=== PATIENT | female | born 1980 | race Caucasian/White ===

== ENCOUNTER 2016-04-21 22:17 | Emergency (ER) | payer BC, OTHER ==
[~2016-04-21] VITALS: Ht 175.3 cm; Wt 87.0 kg
[2016-04-21 22:28] VITALS: BP 135/84; PULSE 104; RESP 18; TEMP 98.2; O2SAT 95
--- NOTE | 2016-04-21 23:43 | PD ---
HPI Chief Complaint: Alcohol/Drug Intoxication Time Seen by Provider: 23:40 Travel History International Travel<30 days: No Contact w/Intl Traveler<30days: No Traveled to known affect area: No History of Present Illness HPI Patient comes in by EMS after being found passed out and a parking lot. Patient states she does not recall what happened. Patient complaining of pain in her face and right shoulder. Patient describes pain as a throbbing/aching like in nature. Patient is uncertain of her last tetanus shot. Patient reports she drank a lot today. Denies , chest pain, shortness of breath, numbness or tingling, loss of bowel or bladder, nausea, vomiting, headache, or abdominal pain. PFSH Past Medical History Medical History: Denies Significant Hx Tetanus Vaccination: Unknown Influenza Vaccination: No ?: Not LMP: 04/09/16 Tubal Ligation: Yes Past Surgical History Surgical History: No Previous Surgery Social History Alcohol Use: Yes Tobacco Use: No Substance Use: No Allergies-Medications (Allergen,Severity, Reaction): Coded Allergies: No Known Allergies (Unverified , 04/21/16) Reported Meds & Prescriptions Reported Meds & Active Scripts Active No Active Prescriptions or Reported Medications Review of Systems Except as stated in HPI: all other systems reviewed are Neg Physical Exam Narrative GENERAL: Well-developed, overly nourished, in no acute distress, and non-ill appearing. SKIN: Warm and dry. Superficial abrasion right shoulder. Contusion noted right lower mandible anterior aspect that is tender to palpation. HEAD: Atraumatic. Normocephalic. EYES: Pupils equal and round. EOMI. No scleral icterus. No injection or drainage. ENT: No nasal bleeding or discharge. Mucous membranes pink and moist. No fractured or loose teeth noted. NECK: Trachea midline. Supple. No nuclear rigidity. No tenderness or crepitus or midline cervical spine. CARDIOVASCULAR: Radial pulses 2+, tach, equal bilaterally. Capillary refill less than 2 seconds. RESPIRATORY: No accessory muscle use. No respiratory distress. MUSCULOSKELETAL: No obvious deformities. No clubbing. No cyanosis. No edema. Full range of motion. Shoulder:FROM equal BL with passive flexion, extension, Abduction, Adduction, internal/external rotation, and pronation/supination. Sensation equal BL deltoid muscles. Pulses equal BL distal to injury. Capillary refill less than 2 seconds distal to injury and equal BL. FROM distal to injury and equal BL. Strength distal to injury equal BL. NV intact distal to injury equal BL. Flexion and extension of thumb equal BL. Equal strength and movement with abduction/adductions of BL fingers. 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 Patient reports pain with palpation of right shoulder as well as with certain passive and active movements. NEUROLOGICAL: Awake and alert. No obvious cranial nerve deficits. Motor grossly within normal limits. Normal speech. PSYCHIATRIC: Appropriate mood and affect; insight and judgment normal. Data Data Last Documented VS Vital Signs Date Time Temp Pulse Resp B/P Pulse Ox O2 Delivery O2 Flow Rate FiO2 04/21/16 22:28 98.2 104 18 135/84 95 Orders Wound Care (04/21/16 23:37) Tetanus/Diphtheria Tox Adult (Tetanus/Di (04/21/16 23:45) Ct Brain W/O Iv Contrast(Rout) (04/21/16 23:37) Ct Facial Bones W/O Iv Cont (04/21/16 23:37) Ct Cerv Spine W/O Contrast (04/21/16 ) Shoulder, Complete (>2vws) (04/21/16 ) Ice/Cold Pack (04/21/16 23:37) Ibuprofen (Motrin) (04/22/16 01:15) MDM Medical Decision Making Medical Screen Exam Complete: Yes Emergency Medical Condition: Yes Differential Diagnosis Fracture, contusion, abrasion, laceration, strain, other Narrative Course There is no significant jaw pain or tenderness. There is no malocclusion noted subjectively or objectively. There is no bruising under the tongue. There is no significant swelling, tenderness, bruising or deformity of the face to suggest fractures of face or nose. There is no nasal discharge or bleeding and no septal hematoma. There are no visual problems or significant bruising under eyes or midface. There is no evidence to suggest entrapment and there is no facial nerve palsy. There is no flattening of the cheek or altered sensation underneath the eye. The facial bones are stable and nonmobile. The airway is intact. Findings were discussed with the patient. The patient was instructed on pain medication, ice packs and elevation of head. The patient agreed with plan of care and management and will follow up with PCP. There was no evidence of cranial or intracranial injury noted on CT of the head and no evidence of fracture or injury to cervical spine on C-spine CT. The patient has been behaving normally and no notable altered mental status. Lombard score of 15. The neurologic exam is normal. The patient is awake and aware and motor sensory exams are normal. There is no clinical evidence to support intracranial injury or bleed. There is no clinical evidence to suspect bony injury by exam. Radiographic examination revealed no fracture seen at this time. The patient has full range of motion on active and passive motions. There is no significant edema. There is no proximal or distal joint effusion. The distal extremity appears neurovascularly intact, without evidence of neurovascular injury nor compartment syndrome. Tendon exam also was intact. The patient and given warnings for vascular compromise. The patient is to follow up with their regular physician. The patient agrees with plan. The abrasions are very superficial and non-repairable. There was no evidence to suggest foreign bodies. Visual and tactile exams were unremarkable. There was no evidence of neurovascular injury as well. The patients wound were cleaned and dressed. The patient was given signs and symptom warnings for infection, such as increasing pain, redness, swelling, associated heat, pus or fever. The patient was given instructions for timely follow up. The patient agreed with plan of care. Patient in no obvious distress upon re-evaluation. All pertinent Radiology result(s) discussed with patient. Patient was asked if they wanted to speak to my attending, which the patient did not wish to do at this time. Any questions/ concerns in reference to patient diagnosis/condition discussed and clarified prior to patient's discharge. Reinforced sheer importance of close follow up with patient's primary physician or primary care clinic. Instructed patient to return to ED immediately, if symptoms return/worsen. Pt showed understanding of above instructions. Further instructions and recommendations were detailed in discharge paperwork. Pt ambulated without difficulty out of ED at discharge. Diagnosis Primary Impression: Facial contusion Qualified Code: S00.83XA - Facial contusion, initial encounter Additional Impressions: Closed head injury Qualified Code: S09.90XA - Closed head injury, initial encounter Abrasion Right shoulder pain Qualified Code: M25.511 - Acute pain of right shoulder Alcohol intoxication Qualified Code: F10.120 - Alcohol intoxication, uncomplicated Patient Instructions: Abrasion (ED), Alcohol Intoxication (DC), Facial Contusion (ED), General Instructions, Head Injury (ED), Shoulder Pain (ED) Additional Instructions: Follow-up with your primary care physician this week for reevaluation. Sleep and angle approximately 30 or higher to decrease pain and swelling of the face. Apply ice to affected areas 20 minutes per hour as needed for pain. Use [id number] Tylenol and/or ibuprofen as needed for pain. Follow instructions on the packaging. Keep wound dry and clean as possible using soap and water. Use Neosporin to promote healing. Return to the emergency department if symptoms get worse. Scripts No Active Prescriptions or Reported Meds Disposition: 01 DISCHARGE HOME Condition: Stable Jd Hollins Apr 21, 2016 23:43
[2016-04-21] MEDS ORDERED: TETANUS/DIPHTHERIA TOXOID ADULT 0.5 ML VIAL IM ONE (23:45)
--- NOTE | 2016-04-22 00:48 | RADRPT ---
EXAM DATE/TIME: 04/21/2016 23:56 [facility] COMPARISON: No previous studies available for comparison. INDICATIONS : Trauma; fall. RADIATION DOSE: 56.35 CTDIvol (mGy) MEDICAL HISTORY : None SURGICAL HISTORY : None. ENCOUNTER: Initial ACUITY: 1 day PAIN SCALE: 5/10 LOCATION: cranial TECHNIQUE: Multiple contiguous axial images were obtained of the head. Using automated exposure control and adj ustment of the mA and/or kV according to patient size, radiation dose was kept as low as reasonably a chievable to obtain optimal diagnostic quality images. FINDINGS: CEREBRUM: The ventricles are normal for age. No evidence of midline shift, mass lesion, hemorrhage or acute in farction. No extra-axial fluid collections are seen. POSTERIOR FOSSA: The cerebellum and brainstem are intact. The 4th ventricle is midline. The cerebellopontine angle i s unremarkable. EXTRACRANIAL: The visualized portion of the orbits is intact. SKULL: The calvaria is intact. No evidence of skull fracture. CONCLUSION: Negative noncontrast CT brain. Walter Monroy MD on April 22, 2016 at 0:45 Board Certified Radiologist. This report was verified electronically.
--- NOTE | 2016-04-22 00:52 | RADRPT ---
EXAM DATE/TIME: 04/21/2016 23:55 [facility] COMPARISON: No previous studies available for comparison. INDICATIONS : Trauma, fall. MEDICAL HISTORY : None. SURGICAL HISTORY : None. ENCOUNTER: Initial ACUITY: 1 day PAIN SCORE: 5/10 LOCATION: Right shoulder FINDINGS: Multiple view examination of the right shoulder demonstrates no evidence of fracture or dislocation. The glenohumeral and acromioclavicular joints are maintained. There is normal range of motion betwe en internal and external rotation. Bony mineralization is normal. CONCLUSION: No evidence of recent injury. Walter Monroy MD on April 22, 2016 at 0:51 Board Certified Radiologist. This report was verified electronically.
--- NOTE | 2016-04-22 01:00 | RADRPT ---
EXAM DATE/TIME: 04/21/2016 23:56 [facility] COMPARISON: No previous studies available for comparison. INDICATIONS : Trauma; fall. RADIATION DOSE: 17.87 CTDIvol (mGy) MEDICAL HISTORY : None SURGICAL HISTORY : None. ENCOUNTER: Initial ACUITY: 1 day PAIN SCALE: 5/10 LOCATION: neck TECHNIQUE: Volumetric scanning of the cervical spine was performed. Multiplanar reconstructions in the sagittal, coronal and oblique axial planes were performed. Using automated exposure control and adjustment o f the mA and/or kV according to patient size, radiation dose was kept as low as reasonably achievable to obtain optimal diagnostic quality images. FINDINGS: There is reversal of the cervical lordosis from C2-C4. Vertebral body height is maintained. No evid ence of compression deformity or spondylolisthesis. The posterior elements remain in normal alignmen t without evidence of locked or perched facets. The spinous processes are intact. The atlantoaxial articulation is intact. C2-C3: No fracture seen. C3-C4: No fracture seen. C4-C5: No fracture seen. C5-C6: No fracture seen. C6-C7: No fracture seen. C7-T1: No fracture seen. CONCLUSION: Reversal of the upper cervical lordosis without evidence of spondylolisthesis or fracture. Walter Monroy MD on April 22, 2016 at 0:51 Board Certified Radiologist. This report was verified electronically.
--- NOTE | 2016-04-22 01:01 | RADRPT ---
EXAM DATE/TIME: 04/21/2016 23:56 [facility] COMPARISON: No previous studies available for comparison. INDICATIONS : Trauma; fall. RADIATION DOSE: 36.81 CTDIvol (mGy) MEDICAL HISTORY : None SURGICAL HISTORY : None. ENCOUNTER: Initial ACUITY: 1 day PAIN SCORE: 5/10 LOCATION: facial TECHNIQUE: Volumetric scanning of the facial bones was performed. Using automated exposure control and adjustme nt of the mA and/or kV according to patient size, radiation dose was kept as low as reasonably achiev able to obtain optimal diagnostic quality images. FINDINGS: ORBITS: The orbital and infraorbital osseous structures are intact. The retroconal structures have a normal configuration. No radiopaque foreign bodies are seen. NASAL BONE: The nasal bone and maxillary spine are intact ZYGOMATIC ARCHES: Symmetric without evidence of fracture. SINUSES: The maxillary, ethmoid and frontal sinuses are intact. No air-fluid levels seen. NASAL CAVITY: The nasal septum is intact and midline. The lacrimal ducts are intact. SOFT TISSUES: No radiopaque foreign bodies seen. No soft-tissue swelling is seen. INTRACRANIAL: No intracranial air seen. CRIBIFORM PLATE: Grossly intact. CONCLUSION: Negative CT facial bones. Walter Monroy MD on April 22, 2016 at 0:59 Board Certified Radiologist. This report was verified electronically.
[2016-04-22] MEDS ORDERED: IBUPROFEN 800 MG TAB PO ONE (01:15)
== END 2016-04-22 01:27 | disposition home or self-care (01) ==
LOC: NEPB 22:17
DX: S00.83XA Contusion of other part of head, initial encounter (principal); S09.90XA Unspecified injury of head, initial encounter; M25.511 Pain in right shoulder; F10.129 Alcohol abuse with intoxication, unspecified; X58.XXXA Exposure to other specified factors, initial encounter; Z23 Encounter for immunization
CPT/HCPCS: 70450; 70486; 72125; 73030; 90471; 90714